=== PATIENT | female | born 1990 | race Caucasian/White ===

== ENCOUNTER 2020-07-29 15:34 | Emergency (ER) | payer OTHER, SELFPAY ==
[2020-07-29 16:18] LABS: Absolute Lymphocytes (CBC) 2.6 K/uL (0.7-4.9); Basophils % 0.8 % (0-1.3); Hematocrit 41.3 % (36.0-45.0); Lymphocytes % 21.2 % (15.3-44.8); MPV 9.3 fL (7.6-11.3); RBC Red Blood Cell Count 4.74 M/uL (3.86-4.86)
--- NOTE | 2020-07-29 16:18 | RAD REPORT ---
EXAM DESCRIPTION: RAD - Chest Single View - 07/29/2020 4:12 pm CLINICAL HISTORY: CHEST PAIN Chest pain. COMPARISON: No comparisons FINDINGS: Portable technique limits examination quality. The lungs are grossly clear. The heart is normal in size. No displaced fractures. IMPRESSION: No acute intrathoracic process suspected.
[2020-07-29 16:20] LABS: Protime INR 1.09
[2020-07-29 16:42] LABS: ALT/SGPT 20 U/L (12-78); AST/SGOT 8 U/L (15-37); Alkaline Phosphatase 83 U/L (45-117); BUN Blood Urea Nitrogen 11 mg/dL (7-18); Bicarbonate 26 mmol/L (21-32); Bilirubin Direct < 0.1 mg/dL (0-0.2); Bilirubin Total 0.2 mg/dL (0.2-1.0); Glucose Level 87 mg/dL (74-106); Magnesium 2.1 mg/dL (1.8-2.4); NT PRO-BNP 16 pg/mL (<125); Protein, Total 8.2 g/dL (6.4-8.2); Sodium Level 140 mmol/L (136-145); Troponin (Emerg Dept Use Only) < 0.02 ng/mL (0.0-0.045)
[2020-07-29] MEDS ORDERED: NA CHLORIDE 0.9% 1,000 ML ONE (17:15)
[2020-07-29] MEDS ORDERED: LORazepam 2 MG/ML VIAL ONE (17:50)
--- NOTE | 2020-07-29 18:03 | ER ---
Nurse's Notes [facility] Name: Sander Villalpando Age: 30 yrs Sex: Female : 1990 Arrival Date: 07/29/2020 Time: 15:35 Bed 6 Private MD: Diagnosis: Chest pain, unspecified;Shortness of breath Presentation: 07/29 15:44 Chief complaint: Patient states: Chest pain since 2 weeks ago since brother's passing. ca1 Intermittent at that time. 2 days ago, CP is constant, sharp and with SOB. Denies cough. Coronavirus screen: Client denies travel out of the [place] in the last 14 days. At this time, the client does not indicate any symptoms associated with coronavirus-19. Ebola Screen: Patient negative for fever greater than or equal to 101.5 degrees Fahrenheit, and additional compatible Ebola Virus Disease symptoms Patient denies exposure to infectious person. Patient denies travel to an Ebola-affected area in the 21 days before illness onset. No symptoms or risks identified at this time. Initial Sepsis Screen: Does the patient meet any 2 criteria? No. Patient's initial sepsis screen is negative. Does the patient have a suspected source of infection? No. Patient's initial sepsis screen is negative. Risk Assessment: Do you want to hurt yourself or someone else? Patient reports no desire to harm self or others. Onset of symptoms was July 29, 2020. 15:44 Method Of Arrival: Ambulatory ca1 15:44 Acuity: MISSY 3 ca1 Triage Assessment: 16:00 General: Appears in no apparent distress. uncomfortable, Behavior is cooperative, bp appropriate for age, anxious. 16:00 Pain: Complains of pain in chest. EENT: No deficits noted. Neuro: No deficits noted. bp Cardiovascular: Rhythm is sinus tachycardia. Respiratory: No deficits noted. GI: No signs and/or symptoms were reported involving the gastrointestinal system. : No signs and/or symptoms were reported regarding the genitourinary system. Derm: No deficits noted. Musculoskeletal: No deficits noted. 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 - Social history:: Smoking status: Patient/guardian denies using tobacco, the patient reports quitting approximately 1 years ago. Screenin:50 Abuse screen: Denies threats or abuse. Denies injuries from another. Nutritional bp screening: No deficits noted. Tuberculosis screening: No symptoms or risk factors identified. Fall Risk None identified. Assessment: 15:50 General: SEE TRIAGE NOTE. bp 16:58 Reassessment: ALL CURRENT ORDERS COMPLETED, ST ON MONITOR. bp 18:03 Reassessment: Patient appears in no apparent distress at this time. No changes from jl7 previously documented assessment. Patient and/or family updated on plan of care and expected duration. Pain level reassessed. Patient is alert, oriented x 3, equal unlabored respirations, skin warm/dry/pink. 18:06 Reassessment: ERP at bedside discussing results and POC. jl7 Vital Signs: 15:44 BP 138 / 98; Pulse 118; Resp 18 S; Temp 98.6(TE); Pulse Ox 100% on R/A; Weight 136.08 ca1 kg (R); Height 5 ft. 6 in. (167.64 cm) (R); 16:57 BP 128 / 81; Pulse 121; Resp 23; Pulse Ox 99% ; bp 18:02 BP 136 / 72; Pulse 103; Resp 19; Pulse Ox 100% ; jl7 15:44 Body Mass Index 48.42 (136.08 kg, 167.64 cm) ca1 ED Course: 15:35 Patient arrived in ED. ag5 15:37 Ryan Meehan PA is PHCP. [facility] 15:37 Souleymane Sneed MD is Attending Physician. [facility] 15:46 Triage completed. ca1 15:47 Arm band placed on right wrist. ca1 15:50 Patient has correct armband on for positive identification. Bed in low position. Call bp light in reach. Side rails up X2. playground monitor on. Pulse ox on. NIBP on. 15:50 Patient maintains SpO2 saturation greater than 95% on room air. bp 15:52 Brianda Kilpatrick, RN is Primary Nurse. jl7 16:12 XRAY Chest (1 view) In Process Unspecified. EDMS 18:12 No provider procedures requiring assistance completed. IV discontinued, intact, jl7 bleeding controlled, No redness/swelling at site. Pressure dressing applied. Administered Medications: 17:00 Drug: NS 0.9% 1000 ml Route: IV; Rate: 1 bolus; Site: left hand; bp 18:12 Follow up: IV Status: Completed infusion jl7 17:40 Drug: Ativan 0.5 mg Route: IVP; Site: left hand; jl7 18:13 Follow up: Response: No adverse reaction jl7 Outcome: 18:02 Discharge ordered by MD. montero 18:12 Discharged to home ambulatory. jl7 18:12 Condition: stable 18:12 Discharge instructions given to patient, Instructed on discharge instructions, follow up and referral plans. Demonstrated understanding of instructions, follow-up care. 18:17 Patient left the ED. 7 Signatures: Dispatcher [employer] EDMS Ryan Meehan PA PA jmm Leal, Jahala, RN RN jl7 Mal Harry RN RN bp Acob, Cheryl, RN RN ca1 Gaskin, Ajare 5
--- NOTE | 2020-07-29 18:03 | EDPHYS ---
Physician Documentation [facility] Name: Sander Villalpando Age: 30 yrs Sex: Female : 1990 Arrival Date: 07/29/2020 Time: 15:35 Bed 6 Private MD: ED Physician Souleymane Sneed HPI: 07/29 15:37 This 30 yrs old Female presents to ER via Ambulatory with complaints of Chest jmm Pain, Shortness Of Breath. 15:37 The patient has shortness of breath at rest, with light activity. Onset: The jmm symptoms/episode began/occurred gradually, 2 week(s) ago. Duration: The symptoms are continuous, and are steadily getting worse. This is a 30 year old female with a history of hypothyroidism that presents to the ED with complaints of shortness of breath worsening over the past 3 days with chest pain. Patient states her brother 2 weeks ago and since has had shortness of breath. Denies history of CAD, HLP. Denies etoh use. 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 - Social history:: Smoking status: Patient/guardian denies using tobacco, the patient reports quitting approximately 1 years ago. ROS: 15:37 Constitutional: Negative for fever, chills, and weight loss. jmm 15:37 Cardiovascular: Positive for chest pain. 15:37 Respiratory: Positive for shortness of breath. 15:37 All other systems are negative. Exam: 15:37 Constitutional: This is a well developed, well nourished patient who is awake, alert, jmm and in no acute distress. Head/Face: atraumatic. Eyes: EOMI, no conjunctival erythema appreciated ENT: Moist Mucus Membranes Neck: Trachea midline, Supple Chest/axilla: Normal chest wall appearance and motion. 15:37 Abdomen/GI: Non distended, soft Back: Normal ROM Skin: General appearance color normal MS/ Extremity: Moves all extremities, no obvious deformities appreciated, no edema noted to the lower extremities Neuro: Awake and alert, normal gait 15:37 Cardiovascular: Rate: tachycardic, Rhythm: regular, Pulses: no pulse deficits are appreciated. 15:37 Respiratory: the patient does not display signs of respiratory distress, Respirations: normal, Breath sounds: are clear throughout. Vital Signs: 15:44 BP 138 / 98; Pulse 118; Resp 18 S; Temp 98.6(TE); Pulse Ox 100% on R/A; Weight 136.08 ca1 kg (R); Height 5 ft. 6 in. (167.64 cm) (R); 16:57 BP 128 / 81; Pulse 121; Resp 23; Pulse Ox 99% ; bp 18:02 BP 136 / 72; Pulse 103; Resp 19; Pulse Ox 100% ; jl7 15:44 Body Mass Index 48.42 (136.08 kg, 167.64 cm) ca1 MDM: 15:37 Patient medically screened. [facility] 18:00 Data reviewed: vital signs, nurses notes, lab test result(s), EKG, radiologic studies, [facility] plain films. ED course: Iimaging studies and labs negative. Patient's HR increases as I talk to her but when initially entering the room appears wnl. Symptoms may be due to bereavement. I did advise the patient to follow up with cardiology for further evaluation. I do not suspect ACS or PE at this time. Patient is encouraged to return to the ED if symptoms worsen. Patient understood and agrees with the plan of care. . 07/29 15:47 Order name: Basic Metabolic Panel; Complete Time: 16:44 [facility] 07/29 15:47 Order name: CBC with Diff; Complete Time: 16:44 [facility] 07/29 15:47 Order name: LFT's; Complete Time: 16:44 [facility] 07/29 15:47 Order name: Magnesium; Complete Time: 16:44 [facility] 07/29 15:47 Order name: NT PRO-BNP; Complete Time: 16:44 [facility] 07/29 15:47 Order name: PT-INR; Complete Time: 16:44 [facility] 07/29 15:47 Order name: Troponin (emerg Dept Use Only); Complete Time: 16:44 [facility] 07/29 15:47 Order name: XRAY Chest (1 view); Complete Time: 16:20 [facility] 07/29 15:55 Order name: D-Dimer; Complete Time: 16:44 [facility] 07/29 16:45 Order name: TSH; Complete Time: 18:00 [facility] 07/29 15:47 Order name: Cardiac monitoring; Complete Time: 16:10 [facility] 07/29 15:47 Order name: EKG - Nurse/Tech; Complete Time: 16:10 [facility] 07/29 15:47 Order name: IV Saline Lock; Complete Time: 16:10 [facility] 07/29 15:47 Order name: Labs collected and sent; Complete Time: 16:11 [facility] 07/29 15:47 Order name: O2 Per Protocol; Complete Time: 16:11 [facility] 07/29 15:47 Order name: O2 Sat Monitoring; Complete Time: 16:11 [facility] Administered Medications: 17:00 Drug: NS 0.9% 1000 ml Route: IV; Rate: 1 bolus; Site: left hand; bp 18:12 Follow up: IV Status: Completed infusion jl7 17:40 Drug: Ativan 0.5 mg Route: IVP; Site: left hand; jl7 18:13 Follow up: Response: No adverse reaction jl7 Disposition: 18:30 Co-signature as Attending Physician, Souleymane Sneed MD. rn Disposition: 07/29/20 18:02 Discharged to Home. Impression: Chest pain, unspecified, Shortness of breath. - Condition is Stable. - Discharge Instructions: Nonspecific Chest Pain, Shortness of Breath. - Medication Reconciliation Form, Thank You Letter, Antibiotic Education, Prescription Opioid Use form. - Follow up: Private Physician; When: 2 - 3 days; Reason: Recheck today's complaints, Continuance of care, Re-evaluation by your physician. Signatures: Dispatcher [employer] [facility] Ryan Meehan PA PA [facility] Souleymane Sneed MD MD rn Leal, Jahala, RN RN jl7 Mal Harry RN Lindsay José RN RN ca1 Corrections: (The following items were deleted from the chart) 15:55 15:53 D-DIMER+COAG.LAB.BRZ ordered. [facility] 18:17 18:02 07/29/2020 18:02 Discharged to Home. Impression: Chest pain, unspecified; jl7 Shortness of breath. Condition is Stable. Forms are Medication Reconciliation Form, Thank You Letter, Antibiotic Education, Prescription Opioid Use. Follow up: Private Physician; When: 2 - 3 days; Reason: Recheck today's complaints, Continuance of care, Re-evaluation by your physician. kylah
[2020-07-29 18:32] VITALS: TEMP 98.6
[2020-07-29 18:34] VITALS: BP 136/72; O2SAT 100
== END 2020-07-29 18:17 | disposition home or self-care (01) ==
LOC: ER 15:34
DX: R07.9 Chest pain, unspecified (principal); R06.02 Shortness of breath; E03.9 Hypothyroidism, unspecified
CPT/HCPCS: 36415; 71045; 80048; 80076; 83735; 83880; 84443; 84484; 85025; 85379; 85610; 96361; 96374; 99284; J7030

== ENCOUNTER 2020-10-15 18:48 | Emergency (ER) | payer OTHER, SELFPAY ==
[2020-10-15 20:08] LABS: Urine Blood NEGATIVE (NEG); Urine Glucose NEGATIVE (NEG); Urine Protein NEGATIVE (NEG); Urine Specific Gravity 1.025 (1.005-1.030)
--- NOTE | 2020-10-15 20:13 | RAD REPORT ---
EXAM DESCRIPTION: CT - Head C Spine Mpr Wo Con - 10/15/2020 7:50 pm CLINICAL HISTORY: Numbness COMPARISON: None. TECHNIQUE: Computed axial tomography of the head and cervical spine was obtained. Sagittal and coronal reconstruction was performed. All CT scans are performed using dose optimization technique as appropriate and may include automated exposure control or mA/KV adjustment according to patient size. FINDINGS: An intracranial bleed is not seen. Empty sella turcica. The ventricles are normal in caliber. An extra-axial fluid collection is not noted.Fluid within the v isualized sinuses and mastoids is not seen A cervical fracture is not visualized. No dislocation is noted. Uncal vertebral hypertrophy C5-6 resu lts in mild to moderate narrowing of left neural foramina IMPRESSION: No acute intracranial abnormality is seen. A cervical fracture is not visualized. Spondylosis C5-6 results in mild to moderate left foraminal stenosis If the patient continues to have symptoms to suggest intracranial /spinal cord/ spinal canal patholog y then MRI would be recommended
[2020-10-15 20:30] LABS: Absolute Lymphocytes (CBC) 2.4 K/uL (0.7-4.9); Basophils % 1.7 % (0-1.3); Hematocrit 38.5 % (36.0-45.0); MPV 8.9 fL (7.6-11.3); RBC Red Blood Cell Count 4.48 M/uL (3.86-4.86)
[2020-10-15 20:33] LABS: Protime INR 1.04
--- NOTE | 2020-10-15 20:53 | RAD REPORT ---
EXAM DESCRIPTION: Paramjit Single View10/15/2020 8:16 pm CLINICAL HISTORY: Hypertension COMPARISON: July 2020 FINDINGS: The lungs appear clear of acute infiltrate. The heart is normal size IMPRESSION: No acute abnormalities displayed
[2020-10-15 20:54] LABS: ALT/SGPT 25 U/L (12-78); AST/SGOT 12 U/L (15-37); Albumin 3.8 g/dL (3.4-5.0); Alkaline Phosphatase 81 U/L (45-117); BUN Blood Urea Nitrogen 13 mg/dL (7-18); Bicarbonate 29 mmol/L (21-32); Bilirubin Direct < 0.1 mg/dL (0-0.2); Bilirubin Total 0.2 mg/dL (0.2-1.0); Glucose Level 95 mg/dL (74-106); Magnesium 2.3 mg/dL (1.8-2.4); NT PRO-BNP 14 pg/mL (<125); Phosphorus 3.4 mg/dL (2.5-4.9); Potassium 3.9 mmol/L (3.5-5.1); Protein, Total 8.1 g/dL (6.4-8.2); Sodium Level 143 mmol/L (136-145); Troponin (Emerg Dept Use Only) < 0.02 ng/mL (0.0-0.045)
--- NOTE | 2020-10-15 22:51 | ER ---
Nurse's Notes [facility] Name: Sander Villalpando Age: 30 yrs Sex: Female : 1990 Arrival Date: 10/15/2020 Time: 18:50 Bed 20 Private MD: Diagnosis: Left Upper And Lower Extremity Numbness/Tingling Presentation: 10/15 19:01 Chief complaint: Patient states: "I started having numbness on my left arm yesterday jd3 while I was driving and today it has gotten worse and come down the rest of the left side of my body. it feels very uncomfortable.". Coronavirus screen: At this time, the client does not indicate any symptoms associated with coronavirus-19. Ebola Screen: Patient negative for fever greater than or equal to 101.5 degrees Fahrenheit, and additional compatible Ebola Virus Disease symptoms. Initial Sepsis Screen: Does the patient meet any 2 criteria? No. Patient's initial sepsis screen is negative. Does the patient have a suspected source of infection? No. Patient's initial sepsis screen is negative. Risk Assessment: Do you want to hurt yourself or someone else? Patient reports no desire to harm self or others. Onset of symptoms was October 14, 2020. 19:01 Method Of Arrival: Ambulatory jd3 19:01 Acuity: MISSY 3 jd3 RN FAMILY: 22:22 LMP 10/03/2020 rr5 Historical: - Allergies: 19:03 No Known Allergies; jd3 - Home Meds: 19:03 levothyroxine 150 mcg tab [Active]; jd3 - PMHx: 19:03 Hypothyroidism; jd3 - PSHx: 19:03 ; jd3 - Immunization history:: Adult Immunizations up to date. - Social history:: Smoking status: Patient/guardian denies using tobacco, the patient reports quitting approximately 1 years ago. Screenin:04 VAN Screening: Arm Drift: Patient shows no arm weakness. Patient is VAN negative. jd3 20:22 Abuse screen: Denies threats or abuse. Denies injuries from another. Nutritional rr5 screening: No deficits noted. Tuberculosis screening: No symptoms or risk factors identified. Fall Risk IV access (20 points). Total Lee Fall Scale indicates No Risk (0-24 pts). Assessment: 19:20 General: Appears in no apparent distress. comfortable, Behavior is calm, cooperative, rr5 appropriate for age. 19:20 Pain: Complains of pain in left arm Pain currently is 5 out of 10 on a pain scale. rr5 Quality of pain is described as numb. Neuro: Level of Consciousness is awake, alert, obeys commands, Oriented to person, place, time, situation, Reports numbness in left arm. Cardiovascular: Capillary refill < 3 seconds Patient's skin is warm and dry. Respiratory: Airway is patent Respiratory effort is even, unlabored, Respiratory pattern is regular, symmetrical. GI: No signs and/or symptoms were reported involving the gastrointestinal system. : No signs and/or symptoms were reported regarding the genitourinary system. EENT: No signs and/or symptoms were reported regarding the EENT system. Derm: Skin is intact, is healthy with good turgor, Skin temperature is warm. Musculoskeletal: Circulation, motion, and sensation intact. Capillary refill < 3 seconds. 20:20 Reassessment: Patient appears in no apparent distress at this time. Patient is alert, rr5 oriented x 3, equal unlabored respirations, skin warm/dry/pink. 21:30 Reassessment: Patient appears in no apparent distress at this time. Patient is alert, rr5 oriented x 3, equal unlabored respirations, skin warm/dry/pink. awaiting for review, ED provider aware. 22:10 Reassessment: planning to transfer. ED provider will speak to neurologist. explained to rr5 patient and she agreed for the plan of care. 23:55 Reassessment: Patient appears in no apparent distress at this time. report given to rr5 kolton FAITH from [facility]. 10/16 00:49 Reassessment: Patient appears in no apparent distress at this time. Patient is alert, rr5 oriented x 3, equal unlabored respirations, skin warm/dry/pink. [facility] ambulance arrived assist patient going to [facility]. confirmed to EMS staff he stated " I already got the report". Vital Signs: 10/15 19:03 BP 174 / 92; Pulse 110; Resp 17 S; Temp 98.2(O); Pulse Ox 100% on R/A; Weight 140.61 kg jd3 (R); Height 5 ft. 6 in. (167.64 cm) (R); Pain 5/10; 20:00 BP 161 / 96; Pulse 111; Resp 17; Pulse Ox 100% ; rr5 21:00 BP 165 / 89; Pulse 113; Resp 17; Pulse Ox 98% ; rr5 21:41 BP 157 / 84; Pulse 102; Resp 19; Pulse Ox 99% ; rr5 22:26 BP 135 / 87; Pulse 99; Resp 16; Pulse Ox 99% ; rr5 23:30 BP 151 / 89; Pulse 94; Resp 16; Pulse Ox 98% ; rr5 10/16 00:49 BP 146 / 85; Pulse 102; Resp 19; Pulse Ox 99% ; rr5 10/15 19:03 Body Mass Index 50.03 (140.61 kg, 167.64 cm) jd3 ED Course: 10/15 18:50 Patient arrived in ED. as 18:54 Truman Kulkarni, VIANNEY is Primary Nurse. rr5 19:00 Jono Carrington MD is Attending Physician. mh7 19:03 Triage completed. jd3 19:04 Arm band placed on. jd3 19:20 Patient has correct armband on for positive identification. Placed in gown. Bed in low rr5 position. Side rails up X2. youth nutritional monitor on. Pulse ox on. NIBP on. 19:51 Head C Spine Mpr Wo Con In Process Unspecified. EDMS 20:16 XRAY Chest (1 view) In Process Unspecified. EDMS 20:20 Inserted saline lock: 20 gauge in left forearm, using aseptic technique. Blood rr5 collected. 20:23 No provider procedures requiring assistance completed. EKG done, by ED staff, reviewed rr5 by Jono Carrington MD. 22:27 initiated transfer with Sharon from [facility]. mw2 22:40 doc to doc with the physician emissions engineer at [facility]. mw2 22:53 administrative approval given by Sharon Espinosa/ patient is going to [facility] mw2 to the neuro floor/ Dr. Maynard has accepted the patient in transfer/ report to be called to [phone]. 10/16 00:49 Patient transferred, IV remains in place. intact, No redness/swelling at site. rr5 Administered Medications: 10/15 23:02 Drug: Aspirin 325 mg Route: PO; rr5 10/16 00:12 Follow up: Response: No adverse reaction rr5 Outcome: 10/15 22:50 ER care complete, transfer ordered by . mh7 10/16 00:49 Transferred by ground EMS to [facility], Transfer form completed. rr5 Condition: stable 00:49 Instructed on the need for transfer. rr5 00:50 Patient left the ED. mw2 Signatures: Dispatcher [employer] Meeta Snowden Jonathon, RN RN jd3 Christie Nino 2 Truman Kulkarni RN RN rr5 Jono Carrington MD MD 7
--- NOTE | 2020-10-15 22:51 | EDPHYS ---
Physician Documentation [facility] Name: Sander Villalpando Age: 30 yrs Sex: Female : 1990 Arrival Date: 10/15/2020 Time: 18:50 Bed 20 Private MD: ED Physician Jono Carrington HPI: 10/15 20:09 This 30 yrs old Female presents to ER via Ambulatory with complaints of mh7 Numbness - l side. 20:09 The patient's problem is reported as paresthesias, in left upper extremity, in left mh7 lower extremity. Onset: The symptoms/episode began/occurred yesterday, at 18:00. Duration: The episodes are intermittent. Context: the episode(s) was witnessed, by no one, symptoms became apparent on October 14, 2020, occurred on a street or driveway, occurred while the patient was driving. Possible contributing factors include: None. The symptoms are alleviated by nothing. The symptoms are aggravated by changing position. Associated signs and symptoms: Pertinent positives: numbness, tingling, Pertinent negatives: abdominal pain, agitation, ataxia, blurred vision, chest pain, combativeness, confusion, diaphoresis, diarrhea, dizziness, headache, lightheadedness, nausea, palpitations, seizure, shortness of breath, vertigo, vomiting, weakness. Severity of symptoms: At their worst the symptoms were moderate yesterday, in the emergency department the symptoms have improved markedly. 20:17 Patient's baseline: Neuro: alert and fully oriented, Motor: no deficits, Ambulation: mh7 walks without assistance, Speech: normal. 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 - Social history:: Smoking status: Patient/guardian denies using tobacco, the patient reports quitting approximately 1 years ago. ROS: 20:17 Constitutional: Negative for fever, chills, and weight loss, Eyes: Negative for injury, mh7 pain, redness, and discharge, ENT: Negative for injury, pain, and discharge, Neck: Negative for injury, pain, and swelling, Cardiovascular: Negative for chest pain, palpitations, and edema, Respiratory: Negative for shortness of breath, cough, wheezing, and pleuritic chest pain, Abdomen/GI: Negative for abdominal pain, nausea, vomiting, diarrhea, and constipation, Back: Negative for injury and pain, : Negative for injury, bleeding, discharge, and swelling, Skin: Negative for injury, rash, and discoloration, Psych: Negative for depression, anxiety, suicide ideation, homicidal ideation, and hallucinations, Allergy/Immunology: Negative for hives, rash, and allergies, Endocrine: Negative for neck swelling, polydipsia, polyuria, polyphagia, and marked weight changes, Hematologic/Lymphatic: Negative for swollen nodes, abnormal bleeding, and unusual bruising. Exam: 22:50 Constitutional: This is a well developed, well nourished patient who is awake, alert, mh7 and in no acute distress. Head/Face: Normocephalic, atraumatic. Eyes: Pupils equal round and reactive to light, extra-ocular motions intact. Lids and lashes normal. Conjunctiva and sclera are non-icteric and not injected. Cornea within normal limits. Periorbital areas with no swelling, redness, or edema. Neck: Trachea midline, no thyromegaly or masses palpated, and no cervical lymphadenopathy. Supple, full range of motion without nuchal rigidity, or vertebral point tenderness. No Meningismus. Chest/axilla: Normal chest wall appearance and motion. Nontender with no deformity. No lesions are appreciated. Cardiovascular: Regular rate and rhythm with a normal S1 and S2. No gallops, murmurs, or rubs. Normal PMI, no JVD. No pulse deficits. Respiratory: Lungs have equal breath sounds bilaterally, clear to auscultation and percussion. No rales, rhonchi or wheezes noted. No increased work of breathing, no retractions or nasal flaring. Abdomen/GI: Soft, non-tender, with normal bowel sounds. No distension or tympany. No guarding or rebound. No evidence of tenderness throughout. Back: No spinal tenderness. No costovertebral tenderness. Full range of motion. Skin: Warm, dry with normal turgor. Normal color with no rashes, no lesions, and no evidence of cellulitis. 22:50 Psych: Awake, alert, with orientation to person, place and time. Behavior, mood, and affect are within normal limits. 22:50 Musculoskeletal/extremity: Extremities: all appear grossly normal, with no appreciated pain with palpation, ROM: intact in all extremities, Circulation is intact in all extremities. Pulses: are normal with no appreciated deficits, Perfusion: the patient is normally perfused throughout, Perfusion: the extremity is normally perfused throughout, the left arm and left leg Tingling of extremity. numbness, Compartment Syndrome exam of affected extremity: is normal. no pain, no sensation deficit, no palor, no weak pulses, Joints: All joints appear normal with full range of motion. Weight bearing: able to fully bear weight, without difficulty, Tendon exam: specific tendon testing normal through active and passive range of motion DVT Exam: no pain, no swelling, no tenderness, negative Homans' sign noted on exam, no appreciated bluish discoloration, no erythema, no increased warmth, Calves: are non-tender, have equal circumference. 22:50 Neuro: Orientation: is normal, Mentation: is normal, Memory: is normal, Cranial nerves: grossly normal, Cerebellar function: is grossly normal, Motor: is normal, Sensation: pin prick is decreased in the left arm, 2 point discrimination is normal, temperature sense is normal, light touch sense is normal, Gait: is steady, at a normal pace, without difficulty, Deep tendon reflexes are normal, Babinski testing is normal, seizure activity, is not displayed by the patient, Abnormal movements: there are no abnormal movements. 22:54 Radiologist reports: No acute intracranial findings [facility] Vital Signs: 19:03 BP 174 / 92; Pulse 110; Resp 17 S; Temp 98.2(O); Pulse Ox 100% on R/A; Weight 140.61 kg jd3 (R); Height 5 ft. 6 in. (167.64 cm) (R); Pain 5/10; 20:00 BP 161 / 96; Pulse 111; Resp 17; Pulse Ox 100% ; rr5 21:00 BP 165 / 89; Pulse 113; Resp 17; Pulse Ox 98% ; rr5 21:41 BP 157 / 84; Pulse 102; Resp 19; Pulse Ox 99% ; rr5 22:26 BP 135 / 87; Pulse 99; Resp 16; Pulse Ox 99% ; rr5 23:30 BP 151 / 89; Pulse 94; Resp 16; Pulse Ox 98% ; rr5 10/16 00:49 BP 146 / 85; Pulse 102; Resp 19; Pulse Ox 99% ; rr5 10/15 19:03 Body Mass Index 50.03 (140.61 kg, 167.64 cm) jd3 [facility]: 10/15 22:47 Differential diagnosis: CVA, TIA, metabolic disorder, drug effects, Paresthesias. Data [facility] reviewed: vital signs, nurses notes, lab test result(s), CBC, electrolytes, urinalysis, EKG, radiologic studies, CT scan, plain films. Data interpreted: Pulse oximetry: on room air is 99 %. Interpretation: normal. Counseling: I had a detailed discussion with the patient and/or guardian regarding: the historical points, exam findings, and any diagnostic results supporting the discharge/admit diagnosis, the presence of at least one elevated blood pressure reading (>120/80) during this emergency department visit, lab results, radiology results, the need to transfer to another facility, [facility] does not immediately have the required specialist. Response to treatment: the patient's symptoms have mildly improved after treatment. 22:50 Patient medically screened. [facility] 10/15 19:36 Order name: Basic Metabolic Panel; Complete Time: 21:54 [facility] 10/15 19:36 Order name: CBC with Diff; Complete Time: 20:53 [facility] 10/15 19:36 Order name: LFT's; Complete Time: 21:54 [facility] 10/15 19:36 Order name: Magnesium; Complete Time: 21:54 [facility] 10/15 19:36 Order name: NT PRO-BNP; Complete Time: 21:54 [facility] 10/15 19:36 Order name: PT-INR; Complete Time: 20:53 [facility] 10/15 19:36 Order name: Troponin (emerg Dept Use Only); Complete Time: 21:54 [facility] 10/15 19:36 Order name: XRAY Chest (1 view); Complete Time: 21:54 [facility] 10/15 19:36 Order name: Phosphorus; Complete Time: 21:54 [facility] 10/15 19:39 Order name: Head C Spine Mpr Wo Con; Complete Time: 20:53 EDMS 10/15 19:53 Order name: Urine Dipstick--Ancillary (enter results); Complete Time: 20:53 mw2 10/15 19:53 Order name: Urine --Ancillary (enter results); Complete Time: 20:53 [facility] 10/15 19:36 Order name: EKG; Complete Time: 19:36 [facility] 10/15 19:36 Order name: Cardiac monitoring; Complete Time: 20:23 7 10/15 19:36 Order name: EKG - Nurse/Tech; Complete Time: 20:23 [facility] 10/15 19:36 Order name: IV Saline Lock; Complete Time: 20:23 [facility] 10/15 19:36 Order name: Labs collected and sent; Complete Time: 20:23 [facility] 10/15 19:36 Order name: O2 Per Protocol; Complete Time: 19:53 [facility] 10/15 19:36 Order name: O2 Sat Monitoring; Complete Time: 19:53 [facility] 10/15 19:36 Order name: Urine Dipstick-Ancillary (obtain specimen); Complete Time: 19:52 [facility] 10/15 19:36 Order name: Urine Test (obtain specimen); Complete Time: 19:52 7 Administered Medications: 23:02 Drug: Aspirin 325 mg Route: PO; rr5 10/16 00:12 Follow up: Response: No adverse reaction rr5 Disposition: 10/15/20 22:50 Transfer ordered to [facility]. Diagnosis is Left Upper And Lower Extremity Numbness/Tingling. - Reason for transfer: Higher level of care. - Accepting physician is Dr. Augustine. - Condition is Stable. - Problem is new. - Symptoms have improved. Signatures: Dispatcher [employer] EDNV Ronald Jauregui RN RN jd3 Christie Nino mw2 Truman Kulkarni RN RN rr5 Jono Carrington MD MD mh7 Corrections: (The following items were deleted from the chart) 10/15 19:39 19:36 Head Brain Wo Cont+CT.RAD.BRZ ordered. EDNV EDNV 19:39 19:36 C Spine Wo Con+CT.RAD.BRZ ordered. EDNV EDNV 10/16 00:50 10/15 22:50 10/15/2020 22:50 Transfer ordered to [facility]. Diagnosis is mw2 Left Upper And Lower Extremity Numbness/Tingling. Reason for transfer: Higher level of care. Accepting physician is Dr. Augustine. Condition is Stable. Problem is new. Symptoms have improved. mh7
[2020-10-15] MEDS ORDERED: ASPIRIN 81 MG CHEWABLE TABLET ONE (23:14)
[2020-10-16 03:48] VITALS: TEMP 98.2
[2020-10-16 04:03] VITALS: O2SAT 99
[2020-10-16 04:04] VITALS: BP 135/87
== END 2020-10-16 00:50 | disposition short-term general hospital (02) ==
LOC: ER 18:48
DX: R20.2 Paresthesia of skin (principal); E03.9 Hypothyroidism, unspecified
CPT/HCPCS: 36415; 70450; 71045; 72125; 80048; 80076; 81003; 81025; 83735; 83880; 84100; 84484; 85025; 85610; 93005; 99285

== ENCOUNTER 2024-11-18 00:46 | Emergency (ER) | payer BC, OTHER ==
[2024-11-18] MEDS ORDERED: FAMOTIDINE 20 MG/2 ML VIAL IV ONE (01:09)
[2024-11-18] MEDS ORDERED: ONDANSETRON 4 MG/2 ML VIAL ONE (01:09)
[2024-11-18 02:48] LABS: Specific Gravity 1.019 (1.005-1.030)
[2024-11-18 03:14] LABS: Absolute Basophils 0.1 K/uL (0-0.5); Absolute Eosinophils 0.3 K/uL (0-0.5); Absolute Lymphocytes (CBC) 1.5 K/uL (0.7-4.9); Absolute Monocytes 0.8 K/uL (0.1-1.3); Absolute Neutrophil 6.9 K/uL (1.8-8.0); Basophils % 0.6 % (0-1.3); Eosinophils % 3.2 % (0-4.4); Hematocrit 35.6 % (36.0-45.0); Hemoglobin 11.8 g/dL (12.0-15.0); Lymphocytes % 15.6 % (15.3-44.8); MCH 29.8 pg (27.0-35.0); MCV 90.5 fL (80-100); MPV 8.8 fL (7.6-11.3); Monocytes % 8.3 % (3.3-12.3); Neutrophils % 72.3 % (41.7-73.7); Platelets 234 thou/uL (152-406); RBC Red Blood Cell Count 3.94 M/uL (3.86-4.86); Red Cell Distribution Width 13.6 % (12.1-15.2)
[2024-11-18 03:19] LABS: Anion Gap 6.8 mEq/L (5.0-15.0); BUN Blood Urea Nitrogen 11 mg/dL (7-18); Bicarbonate 28 mEq/L (21-32); Glomerular Filtration Rate 118 ml/min (=/>90); Glucose Level 93 mg/dL (74-106); Lipase 64 U/L (13-75); Potassium 3.8 mEq/L (3.5-5.1); Sodium Level 140 mEq/L (136-145)
[2024-11-18 03:20] LABS: Troponin High Sensitivity < 3.0 pg/mL (<58.9)
--- NOTE | 2024-11-18 05:36 | ER ---
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 dd2 HYPERTENSIVE PER EMS AND WAS ADMINISTERED NITRO SL 0.4. Coronavirus screen: At this time, the client does not indicate any symptoms associated with coronavirus-19. Ebola Screen: No symptoms or risks identified at this time. Initial Sepsis Screen: Does the patient meet any 2 criteria? No. Patient's initial sepsis screen is negative. Does the patient have a suspected source of infection? No. Patient's initial sepsis screen is negative. Risk Assessment: Do you want to hurt yourself or someone else? Patient reports no desire to harm self or others. Onset of symptoms was November 18, 2024. Care prior to arrival: Medication(s) given: Nitroglycerin, 0.4 mg SL. 00:53 Method Of Arrival: EMS: BASF dd2 00:53 Acuity: MISSY 3 dd2 Triage Assessment: 00:59 General: Appears in no apparent distress. Behavior is calm, cooperative, appropriate dd2 for age. Pain: Complains of pain in diaphragm, xiphoid area and mid-sternal area Pain currently is 3 out of 10 on a pain scale. at worst was 10 out of 10 on a pain scale. Pain: Pain began suddenly, Alleviated by medications. EENT: No deficits noted. No signs and/or symptoms were reported regarding the EENT system. Neuro: Sullivan Agitation-Sedation Scale (RASS): 0 - Alert and Calm Level of Consciousness is awake, alert, obeys commands, Oriented to person, place, time, situation, Appropriate for age. Cardiovascular: Reports chest pain, Heart tones S1 S2 Patient's skin is warm and dry. Chest pain is described as Pain is 3 out of 10 on a pain scale. began 1 hour prior to arrival is alleviated by NTG. Respiratory: Airway is patent Respiratory effort is even, unlabored, Respiratory pattern is regular, symmetrical, Breath sounds are clear bilaterally. GI: No deficits noted. No signs and/or symptoms were reported involving the gastrointestinal system. Abdomen is non-distended, Bowel sounds present X 4 quads. Abd is soft and non tender X 4 quads. : No deficits noted. No signs and/or symptoms were reported regarding the genitourinary system. Derm: No deficits noted. No signs and/or symptoms reported regarding the dermatologic system. Musculoskeletal: No deficits noted. No signs and/or symptoms reported regarding the musculoskeletal system. Circulation, motion, and sensation intact. Range of motion: intact in all extremities. 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 - Infectious Disease History:: Denies. - Social history:: Smoking status: Patient denies any tobacco usage or history of. Screenin:04 [facility] ED Fall Risk Assessment (Adult) History of falling in the last 3 months, dd2 including since admission No falls in past 3 months (0 pts) Confusion or Disorientation No (0 pts) Intoxicated or Sedated No (0 pts) Impaired Gait No (0 pts) Mobility Assist Device Used No (0 pt) Altered Elimination No (0 pt) Score/Fall Risk Level 0 - 2 = Low Risk Oriented to surroundings, Maintained a safe environment, Educated pt \T\ family on fall prevention, incl call for assistance when getting out of bed, Assessed \T\ reinforced patient's understanding of fall precautions, Hourly rounding (assess needs \T\ fall precautionary measures) done. Abuse screen: Denies threats or abuse. Nutritional screening: No deficits noted. Tuberculosis screening: No symptoms or risk factors identified. Assessment: 01:04 Reassessment: SEE TRIAGE ASSESSMENT FOR FULL ASSESSMENT. dd2 03:15 Reassessment: Patient appears in no apparent distress at this time. Patient and/or bm8 family updated on plan of care and expected duration. Pain level reassessed. Patient is alert, oriented x 3, equal unlabored respirations, skin warm/dry/pink. Patient denies pain at this time. Patient states feeling better. Patient states symptoms have improved. 04:40 Reassessment: Patient appears in no apparent distress at this time. Patient and/or bm8 family updated on plan of care and expected duration. Pain level reassessed. Patient is alert, oriented x 3, equal unlabored respirations, skin warm/dry/pink. Patient denies pain at this time. Patient states feeling better. Patient states symptoms have improved. 05:42 Reassessment: Patient appears in no apparent distress at this time. Patient and/or bm8 family updated on plan of care and expected duration. Pain level reassessed. Patient is alert, oriented x 3, equal unlabored respirations, skin warm/dry/pink. Patient states feeling better. Patient states symptoms have improved. GI: Reports upper abdominal pain, Pain is 2 out of 10 on a pain scale. Vital Signs: 00:53 BP 134 / 96; Pulse 97; Resp 16; Temp 97.7(O); Pulse Ox 98% on R/A; Weight 95.25 kg; dd2 Height 5 ft. 6 in. ; 03:13 BP 132 / 82; Pulse 75; Resp 18 S; Pulse Ox 98% on R/A; br2 04:40 BP 124 / 85; Pulse 73; Resp 12; Temp 97.7; Pulse Ox 100% ; Pain 0/10; bm8 05:42 BP 133 / 80; Pulse 81; Resp 17; Temp 97.7; Pulse Ox 97% ; Pain 2/10; bm8 00:53 Body Mass Index 33.89 (95.25 kg, 167.64 cm) dd2 04:40 Pain Scale: Adult bm8 05:42 Pain Scale: Adult bm8 Romeo Coma Score: 01:04 Eye Response: spontaneous(4). Motor Response: obeys commands(6). Verbal Response: dd2 oriented(5). Total: 15. 04:40 Eye Response: spontaneous(4). Motor Response: obeys commands(6). Verbal Response: bm8 oriented(5). Total: 15. 05:42 Eye Response: spontaneous(4). Motor Response: obeys commands(6). Verbal Response: bm8 oriented(5). Total: 15. ED Course: 00:50 Patient arrived in ED. ec2 00:50 Lee Perez MD is Attending Physician. ec2 00:53 HERNANDEZ HORNER RN is Primary Nurse. dd2 00:59 Triage completed. dd2 00:59 Arm band placed on right wrist. Patient placed in an exam room, on a stretcher, on dd2 bus monitor, on pulse oximetry. 01:04 Patient has correct armband on for positive identification. Bed in low position. Side dd2 rails up X2. Client placed on continuous cardiac and pulse oximetry monitoring. NIBP monitoring applied. bus monitor on. Door closed. Noise minimized. Warm blanket given. Pillow given. Verbal reassurance given. 01:04 No provider procedures requiring assistance completed. Inserted saline lock: 20 gauge dd2 in right antecubital area, using aseptic technique. Blood collected. Flushed with 10 mL NS. Patient maintains SpO2 saturation greater than 95% on room air. 01:15 Initial lab(s) drawn, by me, sent to lab. EKG done, by ED staff, reviewed by Lee Perez MD. 01:42 XRAY Chest (1 view) In Process Unspecified. EDMS 03:15 Provided Education on: POST ER CARE. bm8 03:28 CT Abd/Pelvis - IV Contrast Only In Process Unspecified. EDMS 05:42 IV discontinued, intact, bleeding controlled, No redness/swelling at site. Pressure bm8 dressing applied. Administered Medications: 01:14 Drug: Famotidine IVP 20 mg IVP once; dilute with 10 mL 0.9% NaCl; give over 2 minutes dd2 Route: IVP; Site: right antecubital; 03:16 Follow up: Response: No adverse reaction bm8 01:14 Drug: Ondansetron IVP 4 mg IVP once; over 2 minutes Route: IVP; Site: right antecubital;dd2 03:16 Follow up: Response: No adverse reaction bm8 Medication: 01:04 VIS not applicable for this client. dd2 Outcome: 05:35 Discharge ordered by . ec2 05:42 Discharged to home ambulatory, bm8 05:42 Condition: stable 05:42 Discharge instructions given to patient, family, Instructed on discharge instructions, follow up and referral plans. safety practices, Demonstrated understanding of instructions, follow-up care, medications, Prescriptions given X 1, 05:44 Patient left the ED. bm8 Signatures: Dispatcher [employer] EDAK Lee Perez MD MD ec2 Júnior Anthony RN RN bm8 Barbara Maher RN RN br2 EVENS, HERNANDEZ, RN RN dd2
--- NOTE | 2024-11-18 05:37 | EDPHYS ---
Physician Documentation [facility] Name: Sander Villalpando Age: 34 yrs Sex: Female : 1990 Arrival Date: 11/18/2024 Time: 00:46 Bed 7 Private MD: ED Physician Lee Perez HPI: 11/18 00:53 This 34 yrs old Female presents to ER via Unassigned with complaints of abd ec2 pain. 00:53 Patient arrives today d/t concern for abd pain radiating to the chest. pt reports that ec2 she has had multiple episodes of similar types of abdominal pain. Reports that she was diagnosed with reflux. Patient reports abdominal pain this evening, reports no specific alleviating or exacerbating factors. 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 - Infectious Disease History:: Denies. - Social history:: Smoking status: Patient denies any tobacco usage or history of. ROS: 00:53 Constitutional: as per hpi ec2 Exam: 00:53 Constitutional: GEN: NAD Head: atraumatic Eyes: EOMI Ears: External ears are ec2 normal. CV: regular rate LUNGS: no respiratory distress ABD: non-distended, soft, not guarding, not rigid SKIN: no evidence of rashes MSK: no evidence of trauma Vital Signs: 00:53 BP 134 / 96; Pulse 97; Resp 16; Temp 97.7(O); Pulse Ox 98% on R/A; Weight 95.25 kg; dd2 Height 5 ft. 6 in. ; 03:13 BP 132 / 82; Pulse 75; Resp 18 S; Pulse Ox 98% on R/A; br2 04:40 BP 124 / 85; Pulse 73; Resp 12; Temp 97.7; Pulse Ox 100% ; Pain 0/10; bm8 05:42 BP 133 / 80; Pulse 81; Resp 17; Temp 97.7; Pulse Ox 97% ; Pain 2/10; bm8 00:53 Body Mass Index 33.89 (95.25 kg, 167.64 cm) dd2 04:40 Pain Scale: Adult bm8 05:42 Pain Scale: Adult bm8 Romeo Coma Score: 01:04 Eye Response: spontaneous(4). Motor Response: obeys commands(6). Verbal Response: dd2 oriented(5). Total: 15. 04:40 Eye Response: spontaneous(4). Motor Response: obeys commands(6). Verbal Response: bm8 oriented(5). Total: 15. 05:42 Eye Response: spontaneous(4). Motor Response: obeys commands(6). Verbal Response: bm8 oriented(5). Total: 15. MDM: 00:53 Medical Screening Exam initiated ec2 00:53 Data reviewed: vital signs, nurses notes. ED course: Patient arrives today for ec2 evaluation of abdominal pain rating to the chest. Examination is unrevealing. Will obtain lab work, EKG, chest x-ray as well as CT imaging. Given patient's had multiple visits to the ED for the same complaint of multiple different areas, will obtain advanced imaging of the abdomen.. 01:09 ED course: EKG independently reviewed and interpreted by me, shows normal sinus rhythm, ec2 rate of 88, no acute ST segment elevations, intervals are nonactionable.. 05:36 ED course: CT abdomen and pelvis is negative, will discharge home. Suspect gastritis. ec2 Return precautions given. Start the patient on Pepcid.. 1230 00:51 Order name: Basic Metabolic Panel; Complete Time: 03:22 ec2 30 00:51 Order name: CBC with Diff; Complete Time: 03:22 ec2 11/18 00:51 Order name: Troponin HS; Complete Time: 03:22 ec2 11/18 00:51 Order name: Lipase; Complete Time: 03:22 ec2 1230 02:13 Order name: Test, Urine; Complete Time: 02:55 ec2 11/18 00:51 Order name: XRAY Chest (1 view) ec2 11/18 00:51 Order name: CT Abd/Pelvis - IV Contrast Only ec2 11/18 00:51 Order name: EKG; Complete Time: 00:51 ec2 30 00:51 Order name: Cardiac monitoring; Complete Time: 01:05 ec2 11/18 00:51 Order name: EKG - Nurse/Tech; Complete Time: 01:05 ec2 11/18 00:51 Order name: IV Saline Lock; Complete Time: 01:05 ec2 11/18 00:51 Order name: Labs collected and sent; Complete Time: 01:05 ec2 11/18 00:51 Order name: O2 Per Protocol; Complete Time: 01:05 ec2 11/18 00:51 Order name: O2 Sat Monitoring; Complete Time: 01:05 ec2 Administered Medications: 01:14 Drug: Famotidine IVP 20 mg IVP once; dilute with 10 mL 0.9% NaCl; give over 2 minutes dd2 Route: IVP; Site: right antecubital; 03:16 Follow up: Response: No adverse reaction bm8 01:14 Drug: Ondansetron IVP 4 mg IVP once; over 2 minutes Route: IVP; Site: right antecubital;dd2 03:16 Follow up: Response: No adverse reaction bm8 Disposition Summary: 11/18/24 05:35 Discharge Ordered Notes: Location: Home ec2 Condition: Stable ec2 Diagnosis - Upper abdominal pain, unspecified ec2 - Acute gastritis ec2 - Chest pain, unspecified ec2 Followup: ec2 - With: Private Physician - When: - Reason: Re-evaluation by your physician Discharge Instructions: - Discharge Summary Sheet ec2 - Gastritis, Adult, [id number] ec2 Forms: - Work release form ec2 - Medication Reconciliation Form ec2 - Antibiotic Education ec2 - Prescription Opioid Use ec2 - Patient Portal Instructions ec2 - Leadership Thank You Letter ec2 Prescriptions: - Pepcid 20 mg Oral Tablet - take 1 tablet ORAL route once daily; 20 tablet; Refills: 0, Product Selection ec2 Permitted Signatures: Dispatcher [employer] Lee Tyler MD MD ec2 HERNANDEZ HORNER RN RN dd2 Júnior Anthony RN bm8 Corrections: (The following items were deleted from the chart) 02:13 02:13 Test, Urine+UC.LAB.BRZ ordered. DAVIS CANNON
--- NOTE | 2024-11-18 06:46 | RAD REPORT ---
EXAM: CT Abdomen and Pelvis With Intravenous Contrast CLINICAL HISTORY: The patient is 34 years old and is Female; ABD PAIN TECHNIQUE: Axial computed tomography images of the abdomen and pelvis with intravenous contrast. Sagittal and coronal reformatted images were created and reviewed. This CT exam was performed using one or more of the following dose reduction techniques: automated exposure control, adjustmen t of the mA and/or kV according to patient size, and/or use of iterative reconstruction technique. COMPARISON: No relevant prior studies available. FINDINGS: Lung bases: Unremarkable. No mass. No consolidation. ABDOMEN: Liver: Unremarkable. No mass. Gallbladder and bile ducts: Unremarkable. No calcified stones. No ductal dilation. Pancreas: Unremarkable. No mass. No ductal dilation. Spleen: Unremarkable. No splenomegaly. Adrenals: Unremarkable. No mass. Kidneys and ureters: Unremarkable. No solid mass. No hydronephrosis. Stomach and bowel: Postsurgical changes in the stomach. No obstruction. No mucosal thickening. PELVIS: Appendix: No findings to suggest acute appendicitis. Bladder: Unremarkable. Reproductive: IUD in the uterus. ABDOMEN and PELVIS: Intraperitoneal space: Small amount of free fluid in the pelvis. No free air. Bones/joints: No acute fracture. No dislocation. Soft tissues: Unremarkable. Vasculature: Unremarkable. No abdominal aortic aneurysm. Lymph nodes: Unremarkable. No enlarged lymph nodes. IMPRESSION: No acute finding in the abdomen/pelvis. Electronically signed by: Edson Johnson MD 11/18/2024 05:33 AM [facility] 8 Due to temporary technical issues with the PACS/[employer] reporting system, reports are being izaiah d by the in-house radiologist without review as a courtesy to ensure prompt reporting the interpreting radiologist is fully responsible for the content of the report. Transcribed Date/Time: 11/18/2024 6:46 AM
--- NOTE | 2024-11-18 06:49 | RAD REPORT ---
EXAM DESCRIPTION: Chest Single View CLINICAL HISTORY: CHEST PAIN COMPARISON: None. FINDINGS: 1 view(s) of the chest. Tubes and lines: Leads overlie the chest. Cardiomediastinal silhouette: Normal size and contour. Lungs: No consolidation, pneumothorax, or pleural effusion. Bones: No acute osseous abnormality. Upper abdomen: No abnormality identified. IMPRESSION: 1. No acute pulmonary process identified. Electronically signed by: Gabriel Zabala DO 11/18/2024 02:20 AM [facility] [id number] Due to temporary technical issues with the PACS/[employer] reporting system, reports are being izaiah d by the in-house radiologist without review as a courtesy to ensure prompt reporting the interpreting radiologist is fully responsible for the content of the report. Transcribed Date/Time: 11/18/2024 6:49 AM
[2024-11-18 09:53] VITALS: TEMP 97.7
[2024-11-18 10:02] VITALS: BP 133/80; O2SAT 97
--- NOTE | 2024-11-18 11:08 | EKG ---
Test Date: 2024-11-18 Test Time: 01:05:10 Area Operations Director: SREE MEASUREMENT RESULTS: Intervals: Rate: 88 OH: 146 QRSD: 90 QT: 364 QTc: 440 Odonnell: P: 51 OH: 146 QRS: 49 T: 35 INTERPRETIVE STATEMENTS: Normal sinus rhythm Normal ECG Compared to ECG 10/15/2020 20:11:03 Sinus tachycardia no longer present Electronically Signed On 11-18-24 11:08:03 CRYPTOZOOLOGIST by Chidi Urbina
== END 2024-11-18 05:44 | disposition home or self-care (01) ==
LOC: ER 00:46
DX: K29.00 Acute gastritis without bleeding (principal); R07.9 Chest pain, unspecified
CPT/HCPCS: 93005; 85025; 80048; 36415; 81025; 84484; 83690; 74177; 71045; 96375; 96374; 99285; Q9967; J2405

== ENCOUNTER 2024-12-23 07:57 | Day surgery (SDC) | payer BC ==
[2024-12-20 13:28] LABS: Absolute Basophils 0.1 K/uL (0-0.5); Absolute Eosinophils 0.4 K/uL (0-0.5); Absolute Lymphocytes (CBC) 2.2 K/uL (0.7-4.9); Absolute Monocytes 0.7 K/uL (0.1-1.3); Absolute Neutrophil 5.6 K/uL (1.8-8.0); Basophils % 0.9 % (0-1.3); Eosinophils % 4.4 % (0-4.4); Hematocrit 36.9 % (36.0-45.0); Hemoglobin 12.3 g/dL (12.0-15.0); Lymphocytes % 24.6 % (15.3-44.8); MCH 30.2 pg (27.0-35.0); MCHC 33.5 g/dL (32.0-36.0); MCV 90.2 fL (80-100); MPV 8.9 fL (7.6-11.3); Monocytes % 7.4 % (3.3-12.3); Neutrophils % 62.7 % (41.7-73.7); Platelets 239 thou/uL (152-406); RBC Red Blood Cell Count 4.09 M/uL (3.86-4.86); Red Cell Distribution Width 13.7 % (12.1-15.2)
[2024-12-20 13:44] LABS: ALT/SGPT 17 U/L (13-56); Albumin 3.4 g/dL (3.4-5.0); Alkaline Phosphatase 66 U/L (45-117); Anion Gap 10.9 mEq/L (5.0-15.0); BUN Blood Urea Nitrogen 10 mg/dL (7-18); Bicarbonate 24 mEq/L (21-32); Bilirubin Total 0.2 mg/dL (0.2-1.0); Globulin 3.5 g/dL (2.3-3.5); Glomerular Filtration Rate 103 ml/min (=/>90); Glucose Level 115 mg/dL (74-106); Lipase 53 U/L (13-75); Potassium 3.9 mEq/L (3.5-5.1); Protein, Total 6.9 g/dL (6.4-8.2); Sodium Level 139 mEq/L (136-145)
[2024-12-20 13:48] LABS: AST/SGOT < 10 U/L (15-37); Bilirubin Direct < 0.2 mg/dL (0-0.2)
[2024-12-23] MEDS ORDERED: Ringers Lactate 1,000 ML IV ONE (08:27)
[2024-12-23] MEDS ORDERED: MIDAZOLAM HCL 2 MG/2 ML INJ ONE (09:12)
[2024-12-23] MEDS ORDERED: LIDOCAINE 1% MPF 5 ML VIAL ONE (09:12)
[2024-12-23] MEDS ORDERED: propofoL 200 MG/20 ML VIAL IV ONE (09:12)
[2024-12-23] MEDS ORDERED: ROCURONIUM 50 MG/5 ML VIAL IV ONE (09:12)
[2024-12-23] MEDS ORDERED: FENTANYL CITR 100 MCG/2 ML ONE (09:12)
[2024-12-23] MEDS ORDERED: ONDANSETRON 4 MG/2 ML VIAL ONE (09:12)
[2024-12-23] MEDS ORDERED: KETOROLAC 30 MG/ML INJ ONE (09:12)
[2024-12-23 09:43] LABS: Urine Specific Gravity/Preg 1.015 (1.005-1.030)
[2024-12-23] MEDS: CEFOXITIN SODIUM 1 GM/VIAL ONE (10:00)
[2024-12-23] MEDS ORDERED: GLYCOPYRROLATE 0.2 MG/ML SYR ONE (10:19)
[2024-12-23] MEDS ORDERED: Mastisol Adhesive Liq ONE ×2 (10:21→10:30)
[2024-12-23] MEDS: MORPHINE 4 MG/ML SYR ONE ×3 (10:55→11:30)
--- NOTE | 2024-12-23 10:58 | P.BOP ---
Preoperative diagnosis: symptomatic cholelithiasis, acute cholecystitis, RUQ abd pain Postoperative diagnosis: same Primary procedure: Laparoscopic cholecystectomy Estimated blood loss: <10cc Specimen: gb Findings: as above Anesthesia: General Complications: None Transferred to: Recovery Room Condition: Good
[2024-12-23 11:41] VITALS: O2SAT 100
[2024-12-23] MEDS: HYDROMORPHONE HCL 1 MG/ML INJ ONE (11:53)
[2024-12-23] MEDS: CODEINE 30MG/APAP 300MG TAB ONE (12:30)
[2024-12-23 12:56] VITALS: BP 104/67; TEMP 98
== END 2024-12-23 12:45 | disposition home or self-care (01) ==
LOC: OR 07:57
PROVIDERS: ATTEND Surgery
PROC: 0FT44ZZ Resection of Gallbladder, Percutaneous Endoscopic Approach (ICD-10-PCS; principal; 2024-12-23 09:46)
DX: K80.10 Calculus of gallbladder with chronic cholecystitis without obstruction (principal); R10.11 Right upper quadrant pain; R10.13 Epigastric pain
CPT/HCPCS: 85025; 80048; 36415; 81025; 80076; 88304; 83690; 47600; J2704; J2003; J2250; J3010; J1171; J0694; J2405; J7120